=== PATIENT | male | born 1970 | race Caucasian/White ===

== ENCOUNTER 2019-07-03 03:58 | Emergency (ER) | payer MEDICARE ==
[2019-07-03 04:20] VITALS: BP 120/84
--- NOTE | 2019-07-03 04:45 | ER Document Report ---
ED Substance Abuse / Acc. OD - General Chief Complaint: ETOH Abuse Stated Complaint: MEDICAL CLEARANCE Time Seen by Provider: 07/03/19 04:06 Notes: Patient is a 49-year-old male who presents the emergency department for medical clearance to go to [facility] for alcohol detoxification. Patient states that he drinks 3 tall beers a day. Last night he ended up having 15 beers. Patient denies any abdominal pain, chest pain, difficulty breathing, cough, fever, or any other symptoms. Patient does state that he did travel from [place] to [place] yesterday. - Related Data Allergies/Adverse Reactions: No Known Allergies Allergy (Unverified 07/03/19 04:09) Home Medications: wellbutrin Past Medical History - General Information source: Patient - Social History Smoking Status: Current Every Day Smoker Frequency of alcohol use: Heavy Drug Abuse: None Family History: Reviewed & Not Pertinent Patient has suicidal ideation: No Patient has homicidal ideation: No Psychiatric Medical History: Reports: Hx Depression Review of Systems - Review of Systems Notes: REVIEW OF SYSTEMS: CONSTITUTIONAL : Denies recent illness. Denies recent unintentional weight loss. Denies fever, chills, or sweats. EENT: Denies eye, ear, throat, or mouth pain, discharge, or symptoms. Denies nasal or sinus congestion. CARDIOVASCULAR: Denies chest pain. RESPIRATORY: Denies shortness of breath, cough, congestion, difficulty breathing, or wheezing. GASTROINTESTINAL: Denies nausea, vomiting, and diarrhea. Denies abdominal pain. Denies constipation. GENITOURINARY: Denies difficulty urinating, burning, blood in urine, urgency or frequency. MUSCULOSKELETAL: Denies neck and back pain. Denies joint pain or swelling. SKIN: Denies rash, itchiness, or lesions HEMATOLOGIC : Denies easy bruising or bleeding. LYMPHATIC: Denies swollen, painful, enlarged glands. NEUROLOGICAL: Denies no numbness or tingling denies weakness. Denies headache. Denies altered mental status. Denies alteration in speech. PSYCHIATRIC: See HPI. All other systems reviewed and negative. Physical Exam - Vital signs Vitals: Temp Pulse Resp BP Pulse Ox 97.8 F 90 16 120/84 98 07/03/19 04:03 07/03/19 04:03 07/03/19 04:03 07/03/19 04:03 07/03/19 04:03 - Notes Notes: PHYSICAL EXAMINATION: GENERAL: Appears well, healthy, well-nourished, no acute distress. HEAD: Normocephalic, atraumatic. EXTREMITIES: Normal strength and range of motion. PSYCH: Normal mood, normal affect. Maintaining social distancing due to COVID 19 pandemic. Course - Re-evaluation Re-evalutation: 07/03/19 04:56 I was told by MONIQUE Stratton that the patient was already evaluated by [facility] and was referred out to [facility] via cab. They were already cleared to go to mental health for detox. At this time, the patient will be sent to [facility]. MONIQUE Stratton called [facility] and they stated that they had a room. - Vital Signs Vital signs: Temp Pulse Resp BP Pulse Ox 97.8 F 90 16 120/84 98 07/03/19 04:03 07/03/19 04:03 07/03/19 04:03 07/03/19 04:03 07/03/19 04:03 Discharge - Discharge Clinical Impression: Alcohol abuse Condition: Stable Disposition: HOME, SELF-CARE Additional Instructions: You are seen today in the emergency department for medical clearance. You are already cleared from [facility]. Please go to [facility] crisis center.
== END 2019-07-03 05:06 | disposition home or self-care (01) ==
LOC: ER 03:58
DX: F10.10 Alcohol abuse, uncomplicated (principal); F17.200 Nicotine dependence, unspecified, uncomplicated; F32.9 Major depressive disorder, single episode, unspecified; Z79.899 Other long term (current) drug therapy
CPT/HCPCS: 99282